=== PATIENT | female | born 1950 | race Two or more races ===

== ENCOUNTER 2017-03-31 20:51 | Emergency (ER) | payer MEDICARE, MEDICAID ==
[~2017-03-31] VITALS: Ht 139.7 cm; Wt 55.3 kg
[~2017-03-31 20:51] MED LIST: ALPR0.5T7 PO; CIPR-217 PO; NOR10T PO; PROAIR HFA AER
[2017-03-31 21:22] VITALS: BP 135/78
[2017-04-01] MEDS ORDERED: HYDROmorphone HCL 2 MG/ML VL IM ONE (00:45)
[2017-04-01] MEDS ORDERED: ONDANSETRON HCL 4 MG/2 ML VIAL IM ONE (00:45)
== END 2017-04-01 01:48 | disposition home or self-care (01) ==
LOC: ER 21:20
DX: S40.012A Contusion of left shoulder, initial encounter (principal); S50.02XA Contusion of left elbow, initial encounter; F41.9 Anxiety disorder, unspecified; E11.9 Type 2 diabetes mellitus without complications; I95.9 Hypotension, unspecified; A80.9 Acute poliomyelitis, unspecified; Z88.0 Allergy status to penicillin; Z99.3 Dependence on wheelchair; W22.8XXA Striking against or struck by other objects, initial encounter; Y93.89 Activity, other specified; Y92.89 Other specified places as the place of occurrence of the external cause; Y99.8 Other external cause status
CPT/HCPCS: 73030; 73070; 96372; 99284; J1170; J2405

== ENCOUNTER 2019-08-17 06:04 | Emergency (ER) | payer MEDICARE, MEDICAID ==
[~2019-08-17] VITALS: Ht 142.2 cm; Wt 49.9 kg
[2019-08-17 08:41] LABS: Urine Bacteria FEW /hpf (None Seen); Urine Blood 2+ /uL (Negative); Urine Specific Gravity 1.019 (1.001-1.035); Urine WBC 273 /hpf (0 - 5); Urine WBC Clumps PRESENT /hpf (None Seen)
[2019-08-17 09:10] VITALS: BP 95/52
[2019-08-23] MEDS ORDERED: LEVO-28 PO (13:43)
== END 2019-08-17 10:34 | disposition home or self-care (01) ==
LOC: ER 06:04 → EDBD 06:04 → EDUNIT# 06:04 → ER 09:14
DX: N39.0 Urinary tract infection, site not specified (principal); T83.9XXA Unspecified complication of genitourinary prosthetic device, implant and graft, initial encounter; E11.9 Type 2 diabetes mellitus without complications; N20.0 Calculus of kidney; Z90.49 Acquired absence of other specified parts of digestive tract; Z88.0 Allergy status to penicillin; Z79.899 Other long term (current) drug therapy; Y84.6 Urinary catheterization as the cause of abnormal reaction of the patient, or of later complication, without mention of misadventure at the time of the procedure; Y82.8 Other medical devices associated with adverse incidents; Y92.89 Other specified places as the place of occurrence of the external cause
CPT/HCPCS: 51702; 81001

== ENCOUNTER 2020-06-23 11:39 | Emergency (ER) | payer MEDICARE, MEDICAID ==
[~2020-06-23] VITALS: Ht 154.9 cm; Wt 45.4 kg
[~2020-06-23 11:39] MED LIST changes: -CIPR-217 PO; +LEVO-28 PO
[2020-06-23 13:51] LABS: Basophils # (auto) 0 10 ^3/uL (0-0.2); Basophils % (auto) 0.1 % (0.0-2.0); Eosinophils # (auto) 0 10 ^3/uL (0-0.8); Eosinophils % (auto) 0.4 % (0.0-7.0); Hematocrit 38.4 % (36.0-46.0); Hemoglobin 12.4 g/dL (12.2-16.2); Lymphocytes # (auto) 0.7 10 ^3/uL (0.4-5.4); Lymphocytes % (auto) 8.5 % (10.0-50.0); Mean Corpuscular Hemoglobin 28.5 pg (28.0-32.0); Mean Corpuscular Hgb Conc. 32.3 g/dL (32.0-36.0); Mean Corpuscular Volume 88.2 fL (80.0-100.0); Monocytes # (auto) 0.5 10 ^3/uL (0-1.3); Monocytes % (auto) 5.7 % (0.0-12.0); Neutrophils # (auto) 6.8 10 ^3/uL (1.6-8.6); Neutrophils % (auto) 85.3 % (37.0-80.0); Platelet Count (auto) 236 10^3/uL (140-450); Red Blood Cells 4.35 10^6/uL (4.0-5.20); Red Cell Distribution Width 14.3 % (11.8-14.3)
[2020-06-23 14:05] LABS: Albumin 3.3 g/dL (3.4-5.0); Anion Gap 10 (5-15); Blood Urea Nitrogen 14 mg/dL (7-18); Carbon Dioxide 23 mmol/L (21-32); Chloride 96 mmol/L (98-107); Glucose 214 mg/dL (74-106); Magnesium 2.6 mg/dL (1.6-2.6); Potassium 4.3 mmol/L (3.5-5.1); Sodium 129 mmol/L (136-145)
[2020-06-23 14:12] LABS: Alanine Aminotransferase 24 U/L (13-56); Alkaline Phosphatase 145 U/L (45-117); Aspartate Aminotransferase 28 U/L (15-37); Bilirubin, Total 0.4 mg/dL (0.2-1.0); GFR African American 138 mL/min; GFR Non-African American 114 mL/min; Total Protein 7.7 g/dL (6.4-8.2)
[2020-06-23 14:22] LABS: CRP High Sensitivity 8.01 mg/dL (< 0.3)
[2020-06-23 16:18] VITALS: BP 124/69
== END 2020-06-23 17:05 | disposition home or self-care (01) ==
LOC: ER 11:39 → EDBD 11:39 → ER 17:05
DX: R06.02 Shortness of breath (principal); F41.9 Anxiety disorder, unspecified; E11.9 Type 2 diabetes mellitus without complications; Z90.49 Acquired absence of other specified parts of digestive tract
CPT/HCPCS: 36415; 71045; 80053; 82728; 83615; 83735; 84484; 85025; 85379; 86141; 93971

== ENCOUNTER 2020-06-26 10:32 | Inpatient (IN) | payer MEDICARE, MEDICAID ==
[~2020-06-26] VITALS: Ht 142.2 cm; Wt 54.0 kg
[~2020-06-26 10:32] MED LIST changes: +levoFLOXacin 500MG 100 ML IV ONE
[2020-06-26] MEDS: SODIUM CHLORIDE 0.9% 1,000 ML IV SCH ×2 (12:30→21:29)
[2020-06-26] MEDS ORDERED: MORPHINE SULFATE 4 MG/ML SYR/VIAL IV PRN (12:30)
[2020-06-26] MEDS ORDERED: ACETAMINOPHEN 325 MG TAB PO PRN (12:30)
[2020-06-26] MEDS ORDERED: MORPHINE SULF INJ 2 MG/ML SYRINGE 1ML IV PRN (12:30)
[2020-06-26] MEDS ORDERED: NITROGLYCERIN 0.4 MG SL TAB SL PRN (12:30)
[2020-06-26] MEDS ORDERED: ONDANSETRON HCL 4 MG/2 ML VIAL IV PRN (12:30)
[2020-06-26] MEDS ORDERED: DOCUSATE SOD 100 MG CAP PO PRN (12:30)
[2020-06-26 12:42] LABS: Basophils # (auto) 0 10 ^3/uL (0-0.2); Basophils % (auto) 0.3 % (0.0-2.0); Eosinophils # (auto) 0 10 ^3/uL (0-0.8); Eosinophils % (auto) 0.5 % (0.0-7.0); Hematocrit 33.8 % (36.0-46.0); Hemoglobin 10.9 g/dL (12.2-16.2); Lymphocytes # (auto) 1.1 10 ^3/uL (0.4-5.4); Lymphocytes % (auto) 13.1 % (10.0-50.0); Mean Corpuscular Hemoglobin 28.2 pg (28.0-32.0); Mean Corpuscular Hgb Conc. 32.3 g/dL (32.0-36.0); Mean Corpuscular Volume 87.2 fL (80.0-100.0); Monocytes # (auto) 0.7 10 ^3/uL (0-1.3); Monocytes % (auto) 8.7 % (0.0-12.0); Neutrophils # (auto) 6.5 10 ^3/uL (1.6-8.6); Neutrophils % (auto) 77.4 % (37.0-80.0); Platelet Count (auto) 290 10^3/uL (140-450); Red Blood Cells 3.87 10^6/uL (4.0-5.20); Red Cell Distribution Width 14.1 % (11.8-14.3); White Blood Cell 8.4 10^3/uL (4.4-10.8)
[2020-06-26 12:53] LABS: Albumin 2.9 g/dL (3.4-5.0); Anion Gap 6 (5-15); Blood Urea Nitrogen 12 mg/dL (7-18); Carbon Dioxide 27 mmol/L (21-32); Chloride 99 mmol/L (98-107); Glucose 162 mg/dL (74-106); Sodium 132 mmol/L (136-145)
[2020-06-26 13:02] LABS: Alanine Aminotransferase 23 U/L (13-56); Alkaline Phosphatase 126 U/L (45-117); Aspartate Aminotransferase 17 U/L (15-37); BUN/Creatinine Ratio 37.5; Bilirubin, Total 0.3 mg/dL (0.2-1.0); GFR African American 263 mL/min; GFR Non-African American 217 mL/min; Lactate Dehydrogenase 180 U/L (84-246); Total Protein 7.1 g/dL (6.4-8.2)
[2020-06-26 13:50] LABS: Urine Bacteria FEW /hpf (None Seen); Urine Blood 2+ /uL (Negative); Urine Budding Yeast FEW /hpf (None Seen); Urine Specific Gravity 1.013 (1.001-1.035); Urine WBC 23 /hpf (0 - 5)
[2020-06-26] MEDS ORDERED: ALPR0.5T7 PO (14:13)
[2020-06-26] MEDS ORDERED: ALBUAER3 IN (14:25)
[2020-06-26] MEDS ORDERED: HYDR200T36 PO (14:30)
[2020-06-26] MEDS ORDERED: DEXA2TAB8 PO (14:30)
[2020-06-26] MEDS ORDERED: LINE1TAB6 PO (14:30)
[2020-06-26] MEDS ORDERED: TEMAZEPAM 15 MG CAP PO PRN (20:45)
[2020-06-26] MEDS: ALPRAZolam 0.5 MG TAB PO PRN (21:30)
[2020-06-26] MEDS: ASCORBIC ACID 500 MG TAB PO SCH (21:30)
[2020-06-26] MEDS: FAMOTIDINE 20 MG TAB PO SCH (21:30)
[2020-06-26] MEDS: HYDROcodone-ACET 5/325MG TAB PO PRN (21:30)
--- NOTE | 2020-06-26 21:50 | NUR ---
Telemetry admit from ER DANAY SILVA admitted to Telemetry unit after SBAR received. Patient oriented to primary RN, unit, room, bed, and unit policies regarding patient care and visiting hours. Patient now on continuous telemetry monitoring, tele box #17 and telemetry reading on arrival to unit is NSR. Patient placed on bedside oxygen, weighed by bedscale and encouraged to call if they need something. All questions and concerns addressed, patient verbalized understanding. Bed in lowest locked position, call light within reach, side rails up x2, fall precautions in place. Will continue to monitor patient Q1hr and PRN.
[2020-06-26 23:31] VITALS: BP 84/57
[2020-06-26 23:45] VITALS: BP 125/74
[2020-06-27] MEDS: HYDROcodone-ACET 5/325MG TAB PO PRN ×4 (03:21→19:53)
[2020-06-27 05:00] VITALS: BP 110/62
[2020-06-27] MEDS: SODIUM CHLORIDE 0.9% 1,000 ML IV SCH ×3 (05:07→21:25)
[2020-06-27 06:19] LABS: Basophils # (auto) 0 10 ^3/uL (0-0.2); Basophils % (auto) 0.3 % (0.0-2.0); Eosinophils # (auto) 0 10 ^3/uL (0-0.8); Eosinophils % (auto) 0.6 % (0.0-7.0); Hematocrit 33.7 % (36.0-46.0); Hemoglobin 10.8 g/dL (12.2-16.2); Lymphocytes # (auto) 0.9 10 ^3/uL (0.4-5.4); Lymphocytes % (auto) 14.2 % (10.0-50.0); Mean Corpuscular Hemoglobin 28.7 pg (28.0-32.0); Mean Corpuscular Hgb Conc. 32.1 g/dL (32.0-36.0); Mean Corpuscular Volume 89.6 fL (80.0-100.0); Monocytes # (auto) 0.5 10 ^3/uL (0-1.3); Monocytes % (auto) 7.7 % (0.0-12.0); Neutrophils # (auto) 5.1 10 ^3/uL (1.6-8.6); Neutrophils % (auto) 77.2 % (37.0-80.0); Platelet Count (auto) 263 10^3/uL (140-450); Red Blood Cells 3.76 10^6/uL (4.0-5.20); White Blood Cell 6.7 10^3/uL (4.4-10.8)
[2020-06-27 06:45] LABS: Potassium 4.1 mmol/L (3.5-5.1)
[2020-06-27 06:55] LABS: Albumin 2.7 g/dL (3.4-5.0); BUN/Creatinine Ratio 32.4; Bilirubin, Total 0.2 mg/dL (0.2-1.0); Calcium 9.2 mg/dL (8.5-10.1); Total Protein 6.9 g/dL (6.4-8.2)
[2020-06-27] MEDS: MORPHINE SULF INJ 2 MG/ML SYRINGE 1ML IV PRN ×3 (08:02→18:20)
[2020-06-27 09:00] VITALS: BP 125/68
[2020-06-27] MEDS: ZINC SULFATE 220mg CAP or TAB PO SCH (09:50)
[2020-06-27] MEDS: MULTIPLE VITAMIN TAB PO SCH (09:50)
[2020-06-27] MEDS: FAMOTIDINE 20 MG TAB PO SCH ×2 (09:51→21:25)
[2020-06-27] MEDS: ENOXAPARIN SOD 30 MG/0.3 ML SYRINGE SC SCH (09:51)
[2020-06-27] MEDS: ASCORBIC ACID 500 MG TAB PO SCH ×2 (09:51→21:25)
[2020-06-27] MEDS: ALPRAZolam 0.5 MG TAB PO PRN (12:14)
--- NOTE | 2020-06-27 14:00 | NUR ---
WOUND CARE NOTE: IN TO SEE PATIENT AT THIS TIME FOR WOUND CARE CONSULT. PATIENT ADMITTED TO [facility] WITH DIAGNOSIS OF ACUTE RESPIRATORY FAILURE, COVID 19. SHE HAS CURRENT JAZMINE SCORE OF 12. PATIENT HAS HISTORY WITH POLIO, AND IS QUADRIPLEGIC. SPECIALTY AIR MATTRESS HAS BEEN ORDERED, AND IS PENDING DELIVERY. PATIENT TO BE PLACED, ONCE DELIVERED BY [employer] PATIENT WAS NOTED TO HAVE MULTIPLE OPEN AND RESOLVING BLISTERS, PROBABLY DUE TO AN ALLERGIC REACTION TO A MEDICATION GIVEN TO HER WHEN HOSPITALIZED IN ANOTHER FACILITY. BLISTERS ARE CLOSED, NO LONGER DRAINING TO LEFT CHEST/BREAST, ABDOMEN. RIGHT BREAST, RIGHT THIGH, AND SACRAL BLISTERS ARE OPEN AND DRAINING SEROUS DRAINAGE. ALL WOUNDS PHOTOGRAPHED AT THIS TIME PER PROTOCOL. DRESSED OPEN WOUNDS AT THIS TIME. NO OTHER SKIN INTEGRITY ISSUES SEEN CURRENTLY. RECOMMEND: FREQUENT TURN SCHEDULE Q 2 HOURS, PRN CONDITION PERMITS, WITH PRESSURE REDISTRIBUTION USING PILLOWS/WEDGES, BID/PRN APPLICATION WITH MOISTURE BARRIER CREAM TO SACRAL/PERINEAL SKIN, COVERING UPPER MEDIAL SACRUM WITH OPTIFOAM GENTLE SACRAL DRESSING, DAILY/PRN DRESSING CHANGE TO ALL OPEN BLISTERS WITH THERAHONEY, OPTIFOAM GENTLE DRESSINGS, SPECIALTY AIR MATTRESS, DIETARY CONSULT, SKIN/WOUND CARE PLAN, CONTINUED MONITORING BY WOUND CARE TEAM. Addendum: 06/27/20 at 1746 by Christina Maya RN Amended: Links added.
[2020-06-27 17:00] VITALS: BP 104/73
--- NOTE | 2020-06-27 19:30 | NUR ---
Opening Shift Note Assumed care of patient, awake and alert. Pain of 6 stated. Pain med will be given.Instructed on POC and to call for assist PRN, will continue to monitor for changes Q1hr and PRN.
--- NOTE | 2020-06-27 20:20 | NUR ---
Midline Placement: Patient educated on need for midline placement. All risks and benefits explained and all questions and concerns addresses prior to procedure. 18g/10cm midline inserted via RIGHT BASILIC vein using Ultrasound. Sterile technique utilized. Blood return obtained from SINGLE lumen and flushed easily with NS using proper technique. Midline secured with saline lock; biodisc and occlusive dressing applied. Primary RN notified. Midline lot # [id number].
--- NOTE | 2020-06-27 20:20 | NUR ---
pt is complaining of pain in may catheter site. noted leaking urine. discontinued and reinserted a new one. 16F may reinserted with sterile technique and draining clear urine. Pt tolerated well
[2020-06-27] MEDS: NYSTATIN TOPICAL POWDER 15GM TOP SCH (22:00)
[2020-06-27 23:18] VITALS: BP 140/91
[2020-06-28] MEDS: SODIUM CHLORIDE 0.9% 1,000 ML IV SCH (03:39)
[2020-06-28] MEDS: HYDROcodone-ACET 5/325MG TAB PO PRN ×2 (03:40→09:31)
[2020-06-28 04:41] VITALS: BP 128/68
[2020-06-28] MEDS: MORPHINE SULF INJ 2 MG/ML SYRINGE 1ML IV PRN ×2 (05:04→12:36)
--- NOTE | 2020-06-28 06:42 | NUR ---
spoke to pharmacist Frida to send the Nystatin powder
--- NOTE | 2020-06-28 07:20 | NUR ---
Respiratory note: PT RESTING COMFORTABLY. NO RESPIRATORY DISTRESS NOTED. SPO2 98% ON RA, HR 87, RR 18, BS DIMINISHED BILATERALLY. NO FURTHER RESPIRATORY INTERVENTIONS INDICATED. WILL CONTINUE TO MONITOR PT. CHARTING COMPLETE FROM OUTSIDE OF ROOM PER COVID-19 PRECAUTIONS/PROTOCOL.
--- NOTE | 2020-06-28 07:28 | NUR ---
Opening Shift Note Assumed care of patient, awake and alert. No S/S of distress/SOB, reports body pain. Instructed on POC and to call for assist PRN, will continue to monitor for changes Q1hr and PRN.
[2020-06-28 08:00] VITALS: BP 104/53
[2020-06-28] MEDS: ALPRAZolam 0.5 MG TAB PO PRN (09:31)
[2020-06-28] MEDS: MULTIPLE VITAMIN TAB PO SCH (09:32)
[2020-06-28] MEDS: ASCORBIC ACID 500 MG TAB PO SCH (09:32)
[2020-06-28] MEDS: ZINC SULFATE 220mg CAP or TAB PO SCH (09:32)
[2020-06-28] MEDS: FAMOTIDINE 20 MG TAB PO SCH (09:32)
[2020-06-28] MEDS: ENOXAPARIN SOD 30 MG/0.3 ML SYRINGE SC SCH (09:33)
[2020-06-28] MEDS: NYSTATIN TOPICAL POWDER 15GM TOP SCH (09:33)
[2020-06-28] MEDS ORDERED: BACITRACIN TOP OINT 1 UD PKG TOP SCH (10:00)
[2020-06-28] MEDS ORDERED: CHOLECALCIFEROL (VITD3) 2,000 UNIT CAP PO SCH (10:00)
[2020-06-28] MEDS ORDERED: levoFLOXacin 250MG 50 ML IV SCH (10:00)
--- NOTE | 2020-06-28 11:30 | NUR ---
I spoke with patient and spouse Franko repeatedly regarding home health, wound care, and IV care, both verbilized understanding. [facility] to follow patients care.
--- NOTE | 2020-06-28 11:54 | NUR ---
1145 06/28/20 - Contacted [facility] at [phone] regarding home health orders for hydration, midline care and may care, wound care. I also informed Marysol would be discharging home today. Marysol stated that she would have a nurse visit patient later today.
--- NOTE | 2020-06-28 11:58 | NUR ---
Nutrition Assessment/Consult Notes Please refer to link for full assessment notes. Est Energy needs: 5178-2741 kcals (20-23 kcal/kgBW) Est Protein needs: 54-59 gms/day (1.0-1.1 gm/kgBW) Will continue to monitor and reassess prn. Addendum: 06/28/20 at [address] Amended: Links added.
[2020-06-28 12:00] VITALS: BP 139/95
--- NOTE | 2020-06-28 12:30 | NUR ---
service Leslie RN was given IM for patient to sign. Patient is in Covid unit. Leslie will have patient sign her IM and place it in the chart. Addendum: 06/28/20 at 1505 by Lora Franks Amended: Links added.
--- NOTE | 2020-06-28 12:54 | NUR ---
Assessment Patient is a 69-year old female who is alert and oriented. Prior to admission patient lived home with her and functioned with assistance. Per patient her Porter helps her with her ADLs. Per patient she has home oxygen and a wheelchair for home use. Per patient her PCP is , Dr. Ayala. Patient informed me she has a doctor appointment on Wednesday07/01/20. Per patient she will return home to her prior living arrangements post discharge and her will transport her home. Advised patient there is a social service consult for [facility] care for hydration, [place] care and wound care. Patient is on service with [facility] and will resume service with [facility]. Informed patient clinical information will be faxed to [facility]. Informed patient she has the right to participate in all discharge planning. Patient verbalized understanding and agreed to discharge plan home. Faxed clinical information to [facility]. Per Melinda with [facility] order has been received and they will resume care within 24-48hrs upon d/c day. ASTON Nelson was informed. Addendum: 06/28/20 at 1254 by DOMINGO PATEL Amended: Links added.
--- NOTE | 2020-06-28 13:17 | NUR ---
Discharge instructions given as ordered. Encourage to follow up with PMD as instructed.New appointment given for 07/02 at 10:00. All questions and concerns addressed. Patient verbalized understanding. Medication reconciliation form completed and copy given to patient. may catheter in place, midline in place, both to be managed with home health. Telemetry unit returned to ICU. Patient taken to vehicle via wheelchair with all personal belongings, accompanied by staff to family member. No distress noted at time of departure. Patient to contact home health.
== END 2020-06-28 13:20 | disposition home health service (06) | DRG 177 ==
LOC: ER 10:32 → EDUNIT# 10:32 → EDBD 10:32 → TELE 10:33 → TELE-EAST 21:50
PROVIDERS: ADMIT Internal Medicine; ATTEND Internal Medicine
DX: U07.1 COVID-19 (principal); R53.2 Functional quadriplegia; J12.89 Other viral pneumonia; E86.0 Dehydration; C55 Malignant neoplasm of uterus, part unspecified; E11.9 Type 2 diabetes mellitus without complications; F41.9 Anxiety disorder, unspecified; Z82.49 Family history of ischemic heart disease and other diseases of the circulatory system; Z83.3 Family history of diabetes mellitus; Z86.12 Personal history of poliomyelitis; Z87.442 Personal history of urinary calculi
CPT/HCPCS: 36415; 71045; 80053; 81001; 82728; 83615; 83735; 84484; 85025; 85379; 86141; 93970; 93971; G0378; J1956